=== PATIENT | female | born 1975 | race Two or more races ===

== ENCOUNTER 2017-06-30 14:27 | Day surgery (SDC) | payer OTHER ==
[2018-06-17] MEDS ORDERED: Cyclobenzaprine5 MG PO (05:43)
[2018-06-17] MEDS ORDERED: ALBU90OI INH (05:44)
[2018-06-17] MEDS ORDERED: Percocet 5-3251 EACH PO (06:34)
== END 2017-06-30 22:56 | disposition home or self-care (01) ==
LOC: WOUND 14:27
PROC: 0HRKXK3 Replacement of Right Lower Leg Skin with Nonautologous Tissue Substitute, Full Thickness, External Approach (ICD-10-PCS; principal; 2017-06-30)
DX: Z48.00 Encounter for change or removal of nonsurgical wound dressing (principal); I87.2 Venous insufficiency (chronic) (peripheral); L97.812 Non-pressure chronic ulcer of other part of right lower leg with fat layer exposed; E66.01 Morbid (severe) obesity due to excess calories
CPT/HCPCS: Q4131

== ENCOUNTER 2017-07-28 14:25 | Day surgery (SDC) | payer OTHER ==
[2018-06-17] MEDS ORDERED: Cyclobenzaprine5 MG PO (05:43)
[2018-06-17] MEDS ORDERED: ALBU90OI INH (05:44)
[2018-06-17] MEDS ORDERED: Percocet 5-3251 EACH PO (06:34)
== END 2017-07-28 22:52 | disposition home or self-care (01) ==
LOC: WOUND 14:25
PROC: 0HBKXZZ Excision of Right Lower Leg Skin, External Approach (ICD-10-PCS; principal; 2017-07-28)
DX: Z48.00 Encounter for change or removal of nonsurgical wound dressing (principal); L97.812 Non-pressure chronic ulcer of other part of right lower leg with fat layer exposed; I87.2 Venous insufficiency (chronic) (peripheral); E66.01 Morbid (severe) obesity due to excess calories

== ENCOUNTER 2017-08-04 14:22 | Day surgery (SDC) | payer OTHER ==
[2018-06-17] MEDS ORDERED: Cyclobenzaprine5 MG PO (05:43)
[2018-06-17] MEDS ORDERED: ALBU90OI INH (05:44)
[2018-06-17] MEDS ORDERED: Percocet 5-3251 EACH PO (06:34)
== END 2017-08-04 17:18 | disposition home or self-care (01) ==
LOC: WOUND 14:22
PROC: 0HBKXZZ Excision of Right Lower Leg Skin, External Approach (ICD-10-PCS; principal; 2017-08-04)
DX: Z48.00 Encounter for change or removal of nonsurgical wound dressing (principal); L97.812 Non-pressure chronic ulcer of other part of right lower leg with fat layer exposed; I87.2 Venous insufficiency (chronic) (peripheral)

== ENCOUNTER 2017-08-11 14:36 | Day surgery (SDC) | payer OTHER ==
[2018-06-17] MEDS ORDERED: Cyclobenzaprine5 MG PO (05:43)
[2018-06-17] MEDS ORDERED: ALBU90OI INH (05:44)
[2018-06-17] MEDS ORDERED: Percocet 5-3251 EACH PO (06:34)
== END 2017-08-11 16:02 | disposition home or self-care (01) ==
LOC: WOUND 14:36
DX: Z48.00 Encounter for change or removal of nonsurgical wound dressing (principal); L97.812 Non-pressure chronic ulcer of other part of right lower leg with fat layer exposed; I87.2 Venous insufficiency (chronic) (peripheral); I89.0 Lymphedema, not elsewhere classified; E66.01 Morbid (severe) obesity due to excess calories
CPT/HCPCS: G0463

== ENCOUNTER 2017-08-18 14:40 | Day surgery (SDC) | payer OTHER ==
[2018-06-17] MEDS ORDERED: Cyclobenzaprine5 MG PO (05:43)
[2018-06-17] MEDS ORDERED: ALBU90OI INH (05:44)
[2018-06-17] MEDS ORDERED: Percocet 5-3251 EACH PO (06:34)
== END 2017-08-18 14:51 | disposition home or self-care (01) ==
LOC: WOUND 14:40
DX: Z48.00 Encounter for change or removal of nonsurgical wound dressing (principal); L97.812 Non-pressure chronic ulcer of other part of right lower leg with fat layer exposed; I87.2 Venous insufficiency (chronic) (peripheral)
CPT/HCPCS: G0463

== ENCOUNTER 2017-08-25 00:33 | Day surgery (SDC) | payer OTHER ==
[2018-06-17] MEDS ORDERED: Cyclobenzaprine5 MG PO (05:43)
[2018-06-17] MEDS ORDERED: ALBU90OI INH (05:44)
[2018-06-17] MEDS ORDERED: Percocet 5-3251 EACH PO (06:34)
== END 2017-08-25 12:33 | disposition home or self-care (01) ==
LOC: WOUND 00:33
DX: Z48.00 Encounter for change or removal of nonsurgical wound dressing (principal); L97.812 Non-pressure chronic ulcer of other part of right lower leg with fat layer exposed; I87.2 Venous insufficiency (chronic) (peripheral); E66.01 Morbid (severe) obesity due to excess calories; I89.0 Lymphedema, not elsewhere classified
CPT/HCPCS: G0463

== ENCOUNTER 2017-09-01 00:44 | Day surgery (SDC) | payer OTHER ==
[2018-06-17] MEDS ORDERED: Cyclobenzaprine5 MG PO (05:43)
[2018-06-17] MEDS ORDERED: ALBU90OI INH (05:44)
[2018-06-17] MEDS ORDERED: Percocet 5-3251 EACH PO (06:34)
== END 2017-09-01 12:53 | disposition home or self-care (01) ==
LOC: WOUND 00:44
DX: Z48.00 Encounter for change or removal of nonsurgical wound dressing (principal); L97.812 Non-pressure chronic ulcer of other part of right lower leg with fat layer exposed; I87.2 Venous insufficiency (chronic) (peripheral); E66.01 Morbid (severe) obesity due to excess calories
CPT/HCPCS: G0463

== ENCOUNTER 2017-09-06 00:14 | Day surgery (SDC) | payer OTHER ==
[2018-06-17] MEDS ORDERED: Cyclobenzaprine5 MG PO (05:43)
[2018-06-17] MEDS ORDERED: ALBU90OI INH (05:44)
[2018-06-17] MEDS ORDERED: Percocet 5-3251 EACH PO (06:34)
== END 2017-09-06 22:53 | disposition home or self-care (01) ==
LOC: WOUND 00:14
DX: Z48.00 Encounter for change or removal of nonsurgical wound dressing (principal); L97.812 Non-pressure chronic ulcer of other part of right lower leg with fat layer exposed; I87.2 Venous insufficiency (chronic) (peripheral); I89.0 Lymphedema, not elsewhere classified
CPT/HCPCS: G0463

== ENCOUNTER 2017-09-13 00:18 | Day surgery (SDC) | payer OTHER ==
[2018-06-17] MEDS ORDERED: Cyclobenzaprine5 MG PO (05:43)
[2018-06-17] MEDS ORDERED: ALBU90OI INH (05:44)
[2018-06-17] MEDS ORDERED: Percocet 5-3251 EACH PO (06:34)
== END 2017-09-13 14:34 | disposition home or self-care (01) ==
LOC: WOUND 00:18
DX: Z48.00 Encounter for change or removal of nonsurgical wound dressing (principal); I87.2 Venous insufficiency (chronic) (peripheral); L97.812 Non-pressure chronic ulcer of other part of right lower leg with fat layer exposed
CPT/HCPCS: G0463

== ENCOUNTER 2017-09-20 00:06 | Day surgery (SDC) | payer OTHER ==
[2018-06-17] MEDS ORDERED: Cyclobenzaprine5 MG PO (05:43)
[2018-06-17] MEDS ORDERED: ALBU90OI INH (05:44)
[2018-06-17] MEDS ORDERED: Percocet 5-3251 EACH PO (06:34)
== END 2017-09-20 22:58 | disposition home or self-care (01) ==
LOC: WOUND 00:06
DX: Z48.00 Encounter for change or removal of nonsurgical wound dressing (principal); L97.812 Non-pressure chronic ulcer of other part of right lower leg with fat layer exposed; I87.2 Venous insufficiency (chronic) (peripheral); E66.01 Morbid (severe) obesity due to excess calories
CPT/HCPCS: G0463

== ENCOUNTER 2017-09-27 00:33 | Day surgery (SDC) | payer OTHER ==
[2018-06-17] MEDS ORDERED: Cyclobenzaprine5 MG PO (05:43)
[2018-06-17] MEDS ORDERED: ALBU90OI INH (05:44)
[2018-06-17] MEDS ORDERED: Percocet 5-3251 EACH PO (06:34)
== END 2017-09-27 22:48 | disposition home or self-care (01) ==
LOC: WOUND 00:33
DX: Z48.00 Encounter for change or removal of nonsurgical wound dressing (principal); L97.812 Non-pressure chronic ulcer of other part of right lower leg with fat layer exposed; I87.2 Venous insufficiency (chronic) (peripheral); I89.0 Lymphedema, not elsewhere classified; E66.01 Morbid (severe) obesity due to excess calories
CPT/HCPCS: G0463

== ENCOUNTER 2017-10-04 12:37 | Day surgery (SDC) | payer OTHER ==
[2018-06-17] MEDS ORDERED: Cyclobenzaprine5 MG PO (05:43)
[2018-06-17] MEDS ORDERED: ALBU90OI INH (05:44)
[2018-06-17] MEDS ORDERED: Percocet 5-3251 EACH PO (06:34)
== END 2017-10-04 22:50 | disposition home or self-care (01) ==
LOC: WOUND 12:37
DX: Z48.00 Encounter for change or removal of nonsurgical wound dressing (principal); L97.812 Non-pressure chronic ulcer of other part of right lower leg with fat layer exposed; I87.2 Venous insufficiency (chronic) (peripheral); E66.01 Morbid (severe) obesity due to excess calories
CPT/HCPCS: G0463

== ENCOUNTER 2017-10-11 12:55 | Day surgery (SDC) | payer OTHER ==
[2018-06-17] MEDS ORDERED: Cyclobenzaprine5 MG PO (05:43)
[2018-06-17] MEDS ORDERED: ALBU90OI INH (05:44)
[2018-06-17] MEDS ORDERED: Percocet 5-3251 EACH PO (06:34)
== END 2017-10-11 23:04 | disposition home or self-care (01) ==
LOC: WOUND 12:55
DX: I87.2 Venous insufficiency (chronic) (peripheral) (principal); Z48.00 Encounter for change or removal of nonsurgical wound dressing; L97.812 Non-pressure chronic ulcer of other part of right lower leg with fat layer exposed
CPT/HCPCS: G0463

== ENCOUNTER 2017-10-18 13:00 | Day surgery (SDC) | payer OTHER ==
[2018-06-17] MEDS ORDERED: Cyclobenzaprine5 MG PO (05:43)
[2018-06-17] MEDS ORDERED: ALBU90OI INH (05:44)
[2018-06-17] MEDS ORDERED: Percocet 5-3251 EACH PO (06:34)
== END 2017-10-18 16:52 | disposition home or self-care (01) ==
LOC: WOUND 13:00
DX: L97.812 Non-pressure chronic ulcer of other part of right lower leg with fat layer exposed (principal); I87.2 Venous insufficiency (chronic) (peripheral); E66.01 Morbid (severe) obesity due to excess calories
CPT/HCPCS: G0463

== ENCOUNTER 2017-10-25 12:10 | Day surgery (SDC) | payer OTHER ==
[2018-06-17] MEDS ORDERED: Cyclobenzaprine5 MG PO (05:43)
[2018-06-17] MEDS ORDERED: ALBU90OI INH (05:44)
[2018-06-17] MEDS ORDERED: Percocet 5-3251 EACH PO (06:34)
== END 2017-10-25 23:06 | disposition home or self-care (01) ==
LOC: WOUND 12:10
DX: Z48.00 Encounter for change or removal of nonsurgical wound dressing (principal); I83.218 Varicose veins of right lower extremity with both ulcer of other part of lower extremity and inflammation; L97.812 Non-pressure chronic ulcer of other part of right lower leg with fat layer exposed; E66.01 Morbid (severe) obesity due to excess calories
CPT/HCPCS: G0463

== ENCOUNTER → 2018-07-19 | Outpatient (CLI) | payer OTHER ==
[~2018-07-19] MED LIST: ALBU90OI INH; Cyclobenzaprine5 MG PO; Percocet 5-3251 EACH PO
[2018-07-20 15:07] LABS: HPV 16 Negative (Negative); HPV 18 Negative (Negative); HPV OTHER HR TYPES Negative (Negative)
== END | disposition home or self-care (01) ==
LOC: LAB SHORT 18:00 → LAB 18:00
PROVIDERS: Nurse Practitioner Women's Health
DX: Z12.4 Encounter for screening for malignant neoplasm of cervix (principal)
CPT/HCPCS: 87624; G0123

== ENCOUNTER → 2022-02-03 | Outpatient (CLI) | payer OTHER ==
[2022-02-04 15:10] LABS: HPV 16 Negative (Negative); HPV 18 Negative (Negative); HPV OTHER HR TYPES Negative (Negative)
== END ==
LOC: LAB SHORT 13:16 → LAB 13:16
PROVIDERS: Registered Nurse Community Health
DX: Z12.4 Encounter for screening for malignant neoplasm of cervix (principal)
CPT/HCPCS: 87624; G0123

== ENCOUNTER 2024-08-24 08:56 | Day surgery (SDC) | payer BC ==
[~2024-08-24] VITALS: Ht 180.3 cm; Wt 183.0 kg
[~2024-08-24 08:56] MED LIST changes: +ACET325 PO; +ALLEGRA ALLERG180 MG PO; +FLUT1DIS5 INH; +IBUP200 PO; +Lactated Ringer's 1,000 ML IV SCH; +ZYRTEC10 M2 PO
[2024-08-24 10:13] VITALS: BP 133/72
--- NOTE | 2024-08-24 10:38 | NUR ---
Ambulatory in Day Surgery History, Chart, Medications and Allergies reviewed before start of procedure. Pre-Op teaching done. Pt verbalizes understanding. Patient States Post-Procedure ride home has been arranged.
[2024-08-24] MEDS ORDERED: propofoL 20 ML IV ONE (11:19)
--- NOTE | 2024-08-24 12:00 | NUR ---
08/24/24 Adriana Gandara 1152- History, Chart, Medications and Allergies reviewed before start of procedure.MONITOR INTACT WITH CONTINUOUS PULSE OXIMETRY, CONTINUOUS END TITAL CO2, AND INTERMITTENT BLOOD PRESSURE.3-LEAD EKG REVIEWED WITH PHYSICIAN PRIOR TO START OF PROCEDURE.O2 VIA POM INTACT THROUGHOUT SEDATION/PROCEDURE.ARIEL HALL PROVIDING MAC-SEE ANESTHESIA RECORD.
[2024-08-24] MEDS ORDERED: propofoL 40 ML IV ONE (12:08)
[2024-08-24 12:23] VITALS: BP 111/53
[2024-08-24 12:33] VITALS: BP 136/81
--- NOTE | 2024-08-24 12:48 | NUR ---
Patient up to Ambulate independently. Gait steady. Discharge instructions reviewed with patient. Patient verbalizes understanding. Copy given to patient to take home. Discharged via wheelchair to private car for ride home.
== END 2024-08-24 12:44 | disposition home or self-care (01) ==
LOC: ORSCMMR 08:56 → ORD 10:30 → ORSCMMR 11:00
DX: Z12.11 Encounter for screening for malignant neoplasm of colon (principal); D12.5 Benign neoplasm of sigmoid colon; D12.2 Benign neoplasm of ascending colon; J45.909 Unspecified asthma, uncomplicated; Z68.43 Body mass index [BMI] 50.0-59.9, adult; E66.01 Morbid (severe) obesity due to excess calories; Z79.899 Other long term (current) drug therapy
CPT/HCPCS: 82947; 88305; J2704; J7120